=== PATIENT | female | born 1965 | race Hispanic/Latino ===

== ENCOUNTER 2018-12-10 11:06 | Day surgery (SDC) | payer MEDICAID ==
[~2018-12-10] VITALS: Ht 165.1 cm; Wt 65.8 kg
[~2018-12-10 11:06] MED LIST: MONT10TA24 PO; SODIUM CHLORIDE 0.9% 1000ML 1,000 ML IV ONE
[2018-12-10 11:33] VITALS: BP 107/75
[2018-12-10] MEDS ORDERED: FAMO20TA8 PO (11:53)
[2018-12-10] MEDS ORDERED: BISA5TAB12 PO (11:53)
[2018-12-10] MEDS ORDERED: CHOL100046 PO (11:53)
[2018-12-10] MEDS ORDERED: METO10TA3 PO (11:53)
[2018-12-10] MEDS ORDERED: DICY20TA11 PO (11:53)
[2018-12-10] MEDS ORDERED: ONDA4TAB9 PO (11:53)
[2018-12-10] MEDS ORDERED: SUCR1TAB2 PO (11:53)
[2018-12-10] MEDS ORDERED: PROPOFOL 10 MG/ML 20ML VIAL IV ONE (12:25)
[2018-12-10 12:52] VITALS: BP 97/62
[2018-12-10 12:57] VITALS: BP 109/53
[2018-12-10 13:02] VITALS: BP 104/63
[2018-12-10 13:07] VITALS: BP 110/72
[2018-12-10 13:12] VITALS: BP 105/71
== END 2018-12-10 13:22 | disposition home or self-care (01) ==
LOC: ENDO 11:06 → DAH 11:06 → ENDO 13:22
PROVIDERS: ATTEND Internal Medicine
DX: R19.4 Change in bowel habit (principal); K29.50 Unspecified chronic gastritis without bleeding; R10.13 Epigastric pain; R14.0 Abdominal distension (gaseous)
CPT/HCPCS: 43239; 45378; A4606; J2704; J7030

== ENCOUNTER → 2020-07-06 | Outpatient (CLI) | payer MEDICAID ==
[~2020-07-06] MED LIST changes: +ALPR2TAB7 PO; +CYCL10TA7 PO; +FLUO20CA35 PO; -MONT10TA24 PO; -SODIUM CHLORIDE 0.9% 1000ML 1,000 ML IV ONE; +SUCR1TAB2 PO
== END | disposition home or self-care (01) ==
LOC: RAH 09:04
PROVIDERS: ATTEND Family Medicine
DX: K21.9 Gastro-esophageal reflux disease without esophagitis (principal)
CPT/HCPCS: 74240

== ENCOUNTER → 2020-11-16 | Outpatient (CLI) | payer MEDICAID | END | disposition home or self-care (01) | LOC: RAH 09:00 | PROVIDERS: ATTEND Otolaryngology | DX: R49.0 Dysphonia (principal); R13.10 Dysphagia, unspecified | CPT/HCPCS: 74230; 92611 ==

== ENCOUNTER 2021-08-21 12:47 | Emergency (ER) | payer MEDICAID ==
[~2021-08-21] VITALS: Ht 165.1 cm; Wt 61.2 kg
[~2021-08-21 12:47] MED LIST changes: +CYCL-309 PO; -CYCL10TA7 PO; -FLUO20CA35 PO; +FLUO20CA36 PO
[2021-08-21 13:55] LABS: APPEARANCE,URINE Clear (CLEAR); BILIRUBIN,URINE Negative (NEGATIVE); COLOR,URINE Yellow (YELLOW); GLUCOSE, URINE (UA) Negative (NEGATIVE); KETONES,URINE Negative (NEGATIVE); LEUKOCYTE ESTERASE ,URINE Negative (NEGATIVE); NITRATE,URINE Negative (NEGATIVE); OCCULT BLOOD,URINE Negative (NEGATIVE); PROTEIN,URINE Negative (NEGATIVE); UROBILINOGEN,URINE 0.2 mg/dL (0.2-1.0)
[2021-08-21 14:00] LABS: BASOPHILS % (AUTO) 0.4 % (0.0-5.0); LYMPHOCYTES % (AUTO) 38.4 % (21.0-51.0); MEAN CORPUSCULAR HEMOGLOBIN 31.7 pg (27.0-33.0); MEAN CORPUSCULAR HGB CONC 33.2 g/dL (32.0-36.0); MEAN CORPUSCULAR VOLUME 95.7 fL (79-99); MONOCYTES % (AUTO) 13.1 % (3.0-13.0); NEUTROPHILS % (AUTO) 48.1 % (40.0-77.0); PLATELET COUNT (AUTO) 256 K/uL (130-400); RED BLOOD CELL COUNT(AUTO) 3.97 MIL/uL (4.00-5.50); WHITE BLOOD COUNT (AUTO) 2.5 K/uL (4.8-10.8)
[2021-08-21 14:09] LABS: POTASSIUM 4.2 mmol/L (3.5-5.1)
[2021-08-21 14:21] LABS: ALBUMIN 3.9 g/dL (3.5-5.0); BILIRUBIN,TOTAL 0.3 mg/dL (0.2-1.0); CREATININE 0.7 mg/dL (0.5-1.5)
[2021-08-21 14:28] LABS: BAND NEUTROPHILS % (MANUAL) 2 % (0-2); BASOPHILS % (MANUAL) 1 % (0-2); EOSINOPHILS % (MANUAL) 1 % (1-6); LYMPHOCYTES % (MANUAL) 33 % (22-44); MAN.DIFF COMMENT-IMPRESSION MANUAL DIFFERENTIAL; MONOCYTES % (MANUAL) 9 % (2-9); REACTIVE LYMPHOCYTES 2 % (0-0); SEGMENTED NEUTROPHILS % 52 % (40-70)
[2021-08-21] MEDS ORDERED: LACTATED RINGERS 1000ML 1,000 ML IV ONE (15:00)
[2021-08-21] MEDS ORDERED: MORPHINE 2 MG SYG IVP ONE (15:00)
[2021-08-21] MEDS ORDERED: KETOROLAC 60 MG VIAL (30MG/ML) ONE (16:35)
[2021-08-21] MEDS ORDERED: KETOROLAC 60 MG VIAL (30MG/ML) IM ONE (17:00)
[2021-08-21 17:05] VITALS: BP 119/76
[2021-08-21] MEDS ORDERED: DOCU-116 PO (17:37)
[2021-08-21] MEDS ORDERED: POLY17PO4 PO (17:37)
== END 2021-08-21 17:43 | disposition home or self-care (01) ==
LOC: EDH 12:47
DX: K59.00 Constipation, unspecified (principal); M48.54XA Collapsed vertebra, not elsewhere classified, thoracic region, initial encounter for fracture; R19.7 Diarrhea, unspecified; Z20.822 Contact with and (suspected) exposure to COVID-19; Z79.1 Long term (current) use of non-steroidal anti-inflammatories (NSAID); Z79.899 Other long term (current) drug therapy; Z87.891 Personal history of nicotine dependence; Z90.710 Acquired absence of both cervix and uterus
CPT/HCPCS: 36415; 74176; 76856; 80053; 81003; 83690; 85025; 87635; 87804 ×2; 96361; 96372; 96374; 99285; C9803; J1885; J7120

== ENCOUNTER 2021-11-29 18:01 | Emergency (ER) | payer MEDICAID ==
[~2021-11-29] VITALS: Ht 165.1 cm; Wt 61.2 kg
[~2021-11-29 18:01] MED LIST changes: +DOCU-116 PO; +POLY17PO4 PO
[2021-11-29] MEDS ORDERED: ASPIRIN 81MG CHEW TAB PO ONE (18:30)
[2021-11-29] MEDS ORDERED: NITROGLYCERIN 1GM OINT 1 INCH/1GM TD ONE (18:30)
[2021-11-29 18:41] LABS: BASOPHILS % (AUTO) 0.6 % (0.0-5.0); HEMATOCRIT 34.5 % (36-48); LYMPHOCYTES % (AUTO) 45.7 % (21.0-51.0); MEAN CORPUSCULAR HEMOGLOBIN 32.2 pg (27.0-33.0); MEAN CORPUSCULAR HGB CONC 34.5 g/dL (32.0-36.0); MEAN CORPUSCULAR VOLUME 93.2 fL (79-99); MONOCYTES % (AUTO) 12.4 % (3.0-13.0); PLATELET COUNT (AUTO) 200 K/uL (130-400); WHITE BLOOD COUNT (AUTO) 3.2 K/uL (4.8-10.8)
[2021-11-29 18:51] LABS: CREATININE 0.7 mg/dL (0.5-1.5); POTASSIUM 3.7 mmol/L (3.5-5.1)
[2021-11-29 18:56] LABS: ALBUMIN 3.3 g/dL (3.5-5.0); BILIRUBIN,TOTAL 0.1 mg/dL (0.2-1.0); TOTAL PROTEIN, SERUM 6.5 g/dL (6.0-8.3)
[2021-11-29] MEDS ORDERED: LORAZEPAM 1 MG TABLET PO ONE (21:30)
[2021-11-29 22:15] VITALS: BP 103/65
[2021-11-29] MEDS ORDERED: FAMO-136 PO (22:45)
== END 2021-11-29 23:06 | disposition home or self-care (01) ==
LOC: EDH 18:01
DX: F41.9 Anxiety disorder, unspecified (principal); R07.89 Other chest pain; R53.83 Other fatigue; I10 Essential (primary) hypertension; M19.90 Unspecified osteoarthritis, unspecified site; M79.7 Fibromyalgia; Z79.899 Other long term (current) drug therapy; Z87.891 Personal history of nicotine dependence
CPT/HCPCS: 36415; 71045; 80053; 83690; 84484; 85025; 93005

== ENCOUNTER 2022-09-02 20:40 | Emergency (ER) | payer MEDICAID ==
[~2022-09-02] VITALS: Ht 160 cm; Wt 62.6 kg
[~2022-09-02 20:40] MED LIST changes: +FAMO-136 PO
[2022-09-02] MEDS ORDERED: 0.9%NACL 1000ML 1,000 ML IV ONE (21:30)
[2022-09-02] MEDS ORDERED: ONDANSETRON 4MG INJ IVP ONE (21:30)
[2022-09-02 21:44] LABS: BASOPHILS % (AUTO) 0.6 % (0.0-5.0); HEMATOCRIT 36.3 % (36-48); LYMPHOCYTES % (AUTO) 48.8 % (21.0-51.0); MEAN CORPUSCULAR HEMOGLOBIN 31.9 pg (27.0-33.0); MEAN CORPUSCULAR HGB CONC 33.9 g/dL (32.0-36.0); MEAN CORPUSCULAR VOLUME 94.3 fL (79-99); MONOCYTES % (AUTO) 12.5 % (3.0-13.0); NEUTROPHILS % (AUTO) 37.8 % (40.0-77.0); PLATELET COUNT (AUTO) 279 K/uL (130-400); RED BLOOD CELL COUNT(AUTO) 3.85 MIL/uL (4.00-5.50); RED CELL DISTRIBUTION WIDTH 12.2 % (11.0-15.5); WHITE BLOOD COUNT (AUTO) 3.2 K/uL (4.8-10.8)
[2022-09-02 21:53] LABS: APPEARANCE,URINE CLEAR (CLEAR); BILIRUBIN,URINE NEGATIVE (NEGATIVE); COLOR,URINE YELLOW (YELLOW); GLUCOSE, URINE (UA) NEGATIVE (NEGATIVE); KETONES,URINE NEGATIVE (NEGATIVE); LEUKOCYTE ESTERASE ,URINE NEGATIVE Leu/uL (NEGATIVE); NITRATE,URINE NEGATIVE (NEGATIVE); OCCULT BLOOD,URINE NEGATIVE (NEGATIVE); PROTEIN,URINE 20 mg/dL (NEGATIVE)
[2022-09-02 22:00] LABS: AMPHET/METH SCREEN,URINE NEGATIVE (NEGATIVE); BARBITURATE SCREEN, URINE NEGATIVE (NEGATIVE); BENZODIAZEPINES SCREEN,URINE POSITIVE (NEGATIVE); CANNABINOID SCREEN,URINE NEGATIVE (NEGATIVE); COCAINE SCREEN,URINE NEGATIVE (NEGATIVE); OPIATE SCREEN,URINE NEGATIVE (NEGATIVE); PHENCYCLIDINE SCREEN,URINE NEGATIVE (NEGATIVE)
[2022-09-02 22:03] LABS: MUCUS,URINE RARE LPF (None Seen); SQUAMOUS EPITHELIAL CELL,UR RARE /HPF (0-2)
[2022-09-02] MEDS ORDERED: KETOROLAC 15MG/ML VIAL (15MG/ML) ONE (22:06)
[2022-09-02 22:19] LABS: CREATININE 0.8 mg/dL (0.5-1.5); POTASSIUM 3.5 mmol/L (3.5-5.1)
[2022-09-02 22:29] LABS: ALBUMIN 3.5 g/dL (3.5-5.0); TOTAL PROTEIN, SERUM 7.6 g/dL (6.0-8.3)
[2022-09-02] MEDS ORDERED: KETOROLAC 15MG/ML VIAL (15MG/ML) IV ONE (22:30)
[2022-09-03 02:10] VITALS: BP 146/65
== END 2022-09-03 02:13 | disposition home or self-care (01) ==
LOC: EDH 20:40
DX: F41.9 Anxiety disorder, unspecified (principal); B34.9 Viral infection, unspecified; E78.00 Pure hypercholesterolemia, unspecified; M19.90 Unspecified osteoarthritis, unspecified site; Z20.822 Contact with and (suspected) exposure to COVID-19; Z79.899 Other long term (current) drug therapy; Z90.710 Acquired absence of both cervix and uterus; Z98.890 Other specified postprocedural states
CPT/HCPCS: 99285; 96374; 71045; 87635; 96361; 96375; 84484; 80053; 80305; 83690; 85025; 87804 ×2; 36415; 93005; 81001; C9803; J7030; J2405; J1885

== ENCOUNTER 2024-11-27 04:04 | Observation (INO) | payer MEDICAID ==
[~2024-11-27] VITALS: Ht 165.1 cm; Wt 59.0 kg
[~2024-11-27 04:04] MED LIST changes: +CIPR-278 PO; +FLUO-418 PO; -FLUO20CA36 PO; +TAMS-55 PO
--- NOTE | 2024-11-27 04:54 | ERN ---
General Chief Complaint: Flank Pain Stated Complaint: right flank pain Time Seen by MD: 04:18 Source: patient History of Present Illness Initial Comments Patient is a 59-year-old female with a known history of kidney stones and is diagnosed with the current kidney stone. She was seen here recently and also recently by her primary care doctor. She currently is on nitrofurantoin for infection and low-dose hydrocodone/Tylenol for back pain. She was going to see her primary care doctor November 25 (Sunday), but the appointment was canceled and rescheduled for next week. Patient states she tried to stay away and handle the pain on her own but it became too much and she comes to the emergency room tonight. She states alternating fevers and chills. No nausea no vomiting no diarrhea. Allergies: Coded Allergies: No Known Drug Allergies (Verified Allergy, Unknown, 05/04/19) Home Meds Active Scripts Tamsulosin HCl (Flomax) 0.4 Mg Cap.er.24h, 0.4 MG PO DAILY for 10 Days, #10 CAPSULE.DR Prov:ALEIDA MARCELO MD 11/26/24 Ciprofloxacin HCl (Cipro) 500 Mg Tablet, 1 TAB PO BID for 10 Days, #20 TAB 0 Refills Prov:ALEIDA MARCELO MD 11/26/24 Famotidine (Pepcid) 20 Mg Tablet, 20 MG PO BID, #30 TAB 0 Refills Prov:RAFI MONTOYA MD 11/29/21 Docusate Sodium (Colace) 100 Mg Capsule, 100 MG PO BID, #30 CAP Prov:ALOK CROWLEY Jr. [facility] 08/21/21 Polyethylene Glycol 3350 (Miralax) 17 Gm Powd.pack, 17 GM PO DAILY, #21 EA Prov:ALOK CROWLEY Jr. [facility] 08/21/21 Reported Medications Alprazolam (Alprazolam) 2 Mg Tablet, 2 MG PO Q8H 05/05/19 Cyclobenzaprine HCl (Cyclobenzaprine HCl) 10 Mg Tablet, 10 MG PO HS 05/05/19 Fluoxetine HCl (Fluoxetine HCl) 20 Mg Capsule, 20 MG PO DAILY 05/05/19 Sucralfate (Sucralfate) 1 Gm Tablet, 1 GM PO QID, TAB 12/10/18 Past Medical History Past Medical History: Fibromyalgia, GERD, Kidney Stone Medical History Other: HX OF KIDNEY STONES Past Surgical History: Other Surgical History Other: BACK SX Family History Family History: CAD, DM Social History Social History: Negative, Lives alone, Other Female( History) History: Not Applicable Constitutional: (+) chills, (+) diaphoresis, (+) fever, (+) malaise, (+) weakness, (+) other documentation EENTM: (-) eye pain, (-) blurred vision, (-) tearing, (-) double vision, (-) ear pain, (-) ear discharge, (-) nose pain, (-) nose congestion, (-) throat pain, (-) Throat swelling, (-) mouth pain, (-) tooth pain, (-) mouth swelling, (-) other documentation Respiratory: (-) cough, (-) orthopnea, (-) short of breath, (-) stridor, (-) wheezing, (-) other documentation Cardiovascular: (-) chest pain, (-) edema, (-) palpitations, (-) syncope, (-) dyspnea on exertion, (-) other documentation Gastrointestinal/Abdominal: (-) nausea, (-) vomiting, (-) diarrhea, (-) abdominal pain, (-) abdominal distention, (-) constipation, (-) rectal bleeding, (-) dark stool/melena, (-) other documentation Musculoskeletal: (+) Neck pain, (+) back pain, (+) Flank Pain, (+) joint pain, (+) joint swelling, (+) muscle pain, (+) muscle stiffness, (+) gout, (+) other documentation Neuro: (-) altered mental status, (-) headache, (-) syncope, (-) paralysis, (-) numbness, (-) seizure, (-) pre-existing deficit, (-) tremors, (-) weakness, (-) dizziness, (-) slurred speech, (-) vertigo, (-) other documentation Physical Exam General Appearance: (+) moderate distress Orientation: (+) alert Head/Face Trauma: No Eye: bilateral eye normal inspection, bilateral eye PERRL, bilateral eye EOMI Ear, Nose, Throat: (+) hearing grossly normal, (+) normal ENT inspection Neck: (+) normal inspection, (+) supple, (+) no JVD Respiratory: (+) chest non-tender, (+) lungs clear Heart: (+) regular Vascular: (+) no edema, (+) normal peripheral pulse Gastrointestinal: (+) soft, (+) non-tender, (+) bowel sound present Results Laboratory and Microbiology Lab and Micro Result Laboratory Tests Test 11/27/24 05:07 11/27/24 07:35 White Blood Count 3.5 K/uL (4.8-10.8) L Red Blood Count 3.91 MIL/uL (4.00-5.50) L Hemoglobin 12.2 g/dL (12.0-16.0) Hematocrit 37.1 % (36-48) Mean Corpuscular Volume 94.9 fL (79-99) Mean Corpuscular Hemoglobin 31.2 pg (27.0-33.0) Mean Corpuscular Hemoglobin Concent 32.9 g/dL (32.0-36.0) Red Cell Distribution Width 14.4 % (11.0-15.5) Platelet Count 306 K/uL (130-400) Mean Platelet Volume 8.8 fL (7.5-10.5) Immature Granulocyte % (Auto) 0.3 % (0-1) Neutrophils (%) (Auto) 44.5 % (40.0-77.0) Lymphocytes (%) (Auto) 41.7 % (21.0-51.0) Monocytes (%) (Auto) 12.6 % (3.0-13.0) Eosinophils (%) (Auto) 0.0 % (0.0-8.0) Basophils (%) (Auto) 0.9 % (0.0-5.0) Neutrophils # (Auto) 1.6 K/uL (1.8-7.7) L Lymphocytes # (Auto) 1.5 K/uL (1.0-4.8) Monocytes # (Auto) 0.4 K/uL (0.1-1.0) Eosinophils # (Auto) 0.00 K/uL (0.00-0.70) Basophils # (Auto) 0.03 K/uL (0.00-0.20) Absolute Immature Granulocyte (auto 0.01 K/uL (0-1) Nucleated Red Blood Cells 0.0 % (0.0-0.19) Sodium Level 137 mmol/L (136-145) Potassium Level 4.6 mmol/L (3.5-5.1) Chloride Level 99 mmol/L (101-111) L Carbon Dioxide Level 31 mmol/L (21-32) Blood Urea Nitrogen 20 mg/dL (7-18) H Creatinine 0.7 mg/dL (0.5-1.0) Glomerular Filtration Rate Calc 101 mL/min (>90) Random Glucose 92 mg/dL (70-105) Total Calcium 9.5 mg/dL (8.5-10.1) Urine Color LIGHT-YELLOW (YELLOW) Urine Appearance CLEAR (CLEAR) Urine pH 6.0 (5.0-8.0) Urine Specific [place] 1.014 (1.001-1.031) Urine Protein NEGATIVE mg/dL (NEGATIVE) Urine Glucose (UA) NEGATIVE mg/dL (NEGATIVE) Urine Ketones NEGATIVE mg/dL (NEGATIVE) Urine Occult Blood MODERATE (NEGATIVE) H Urine Nitrate NEGATIVE (NEGATIVE) Urine Bilirubin NEGATIVE mg/dL (NEGATIVE) Urine Urobilinogen 0.2 mg/dL (0.2-1.0) Urine Leukocyte Esterase 250 Nicolle/uL (NEGATIVE) H Urine RBC 6-10 /HPF (0-1) H Urine WBC 11-25 /HPF (0-1) H Urine Squamous Epithelial Cells RARE /HPF (0-2) Urine Bacteria None /HPF (None Seen) Labs Reviewed?: Yes EKG/XRAY/US/CT/MRI CT Scan Comment [address] [address] IMAGING REPORT Signed PATIENT: NIKKY MENDOZA MR#: [id number] : 1965 SEX: F AGE: 59 LOCATION: ED ORDER 4 STATUS: REG REPORT#: [id number] SERVICE 3 REASON: FLANK PAIN ORDERING PHYSICIAN: SONIA AMAYA MD PROCEDURE: ABD PEL WO - CT ABDOMEN/PELVIS W/O CONTRAST CT ABDOMEN/PELVIS W/O CONTRAST HISTORY: Flank pain COMPARISON: 11/26/2024 TECHNIQUE: Multiple sequential axial images of the abdomen and pelvis were obtained from the dome of the diaphragm through symphysis pubis. Patient was not given contrast through intravenous route. Oral contrast was not given. FINDINGS: No pleural effusion is seen bilaterally. There is no evidence of parenchymal disease or pulmonary nodule of the visualized lower lungs. Degenerative changes of the thoracolumbar spine are present. The heart is not enlarged. Liver measures 16 cm. The liver, spleen, adrenal glands and pancreas are unremarkable. There is no evidence of hydronephrosis bilaterally. Tiny 2 mm right renal pelvic stones are seen. There is mild diverticulosis. Fecal material is seen in the colon. There are normal size retroperitoneal and mesenteric lymph nodes. No ascites is seen. Atherosclerotic changes are present. Pelvic sidewalls are symmetric bilaterally. Bladder is well distended without wall thickening. IMPRESSION: 1. Moderate fecal material is seen in the colon. There is diverticulosis. Tiny 2 mm right renal pelvic stones without hydronephrosis. CT was performed with one or more following dose reduction techniques: automated exposure control, adjustment of the mA and kv according to patient's size, or use of a iterative reconstruction technique. DICTATED BY: FRANCISCA MAYERS MD DATE: 11/27/24842 ELECTRONICALLY SIGNED BY: FRANCISCA MAYERS MD DATE: 11/27/24854 MDM 59-year-old female in unremitting renal colic associated with fevers and chills. I will do a quick CBC UA chemistry panel to be sure she does not have infection. I also gave the patient some Toradol for her renal colic. It did not help. So I gave her 2 mg of Dilaudid IV x1. Her pain is controlled with the Dilaudid but now her blood pressure is a little low I will give her some fluids. We may have to admit the patient is simply for pain control. MDM: Differential diagnosis: Cholelithiasis, pain management, constipation Rationale: Tests considered and ordered secondary to shared decision making include: labs, ECG and radiology Previous outside records reviewed: Old ER visits. Risk of complication and/or morbidity or mortality of patient management: None Medications-Per medication reconciliation Need for hospitalization: Patient does meet criteria for hospitalization. Need for emergency major/minor surgery: No There are no social concerns with this patient. Prescription drug management Prescriptions will include symptomatic care Patient's prior external medical records from other ER visits were reviewed by me as indicated. Prior testing and results from previous visits were reviewed. Prior tests were taken into account with medical decision making and resource utilization, independent historian/historians were used to obtain complete medical history. I independently interpreted the test that were performed, results were reviewed by me and considered findings on radiology if ordered. Medical management and examination interpretation discussions were had by me with other qualified healthcare professionals as indicated for the patient's care. Patient is a 59-year-old female coming in to be evaluated for abdominal pain. Patient was recently diagnosed with a kidney stone. She states that the pain is intolerable in his here for evaluation. CT disclose a 2 mm kidney stone still present also constipation. Due to the intense pain present patient will be admitted under the care of [facility] for ongoing management. Patient also presented with a urinary tract infection. ED Course Orders Procedure Category Date Status Time Urinalysis Profile LAB 11/27/24 Complete 04:54 Cbc With Differential LAB 11/27/24 Complete 04:54 Basic Metabolic Panel LAB 11/27/24 Complete 04:54 Tamsulosin Hcl PHA 11/27/24 Complete (Flomax) 05:00 Ketorolac PHA 11/27/24 Complete Tromethamine 30mg/Ml 05:00 Hydromorphone 2mg PHA 11/27/24 Complete Vial (Dilaudid 2mg Inj 06:00 Lactated Ringers PHA 11/27/24 Complete 1000ml (Lactated 07:30 Ct Abdomen/Pelvis W/O CT 11/27/24 Resulted Contrast 07:24 Magnesium Citrate PHA 11/27/24 Complete (Magnesium Citrate) 09:00 Lactulose 20 Gm/30 Ml PHA 11/27/24 Complete Udcup (Constulose 09:00 Ceftriaxone 1g Vial PHA 11/27/24 Complete (Rocephine 1g Inj) 09:30 Current Medications Medications (Trade) Dose Ordered Sig/Kishore Route PRN Reason Start Time Stop Time Status Last Admin Dose Admin Ceftriaxone Sodium (ROCEphine 1G INJ) 1 gm ONCE ONCE IVPB 11/27/24 09:30 11/27/24 09:31 DC 11/27/24 09:06 Hydromorphone HCl (DiLAUDid 2MG INJ) 2 mg ONCE ONCE IVP 11/27/24 06:00 11/27/24 06:01 DC 11/27/24 06:02 Ketorolac Tromethamine (toRADol) 30 mg ONCE ONCE IVP 11/27/24 05:00 11/27/24 05:02 DC 11/27/24 05:11 Lactated Ringer's (Lactated Ringers 1000ml) 1,000 ml BOLUS ONCE IV 11/27/24 07:30 11/27/24 07:31 DC 11/27/24 07:33 Lactulose (Constulose 20gm/ 30ml Udcup) 20 gm ONCE ONCE PO 11/27/24 09:00 11/27/24 09:01 DC 11/27/24 09:04 Magnesium Citrate (Magnesium Citrate) 296 ml ONCE ONCE PO 11/27/24 09:00 11/27/24 09:01 DC 11/27/24 09:04 Tamsulosin HCl (FloMAX) 0.4 mg ONCE ONCE PO 11/27/24 05:00 11/27/24 05:02 DC 11/27/24 05:11 Vital Signs Date Time Temp Pulse Resp B/P (MAP) Pulse Ox O2 Delivery O2 Flow Rate FiO2 11/27/24 06:33 72 18 115/69 98 Room Air* 0 21 11/27/24 04:14 98.4 78 18 128/70 98 Room Air* 0 21 11/27/24 04:14 98.4 71 18 128/70 99 Room Air DX & DISP Disposition: Inpatient Decision to Admit Time: 09:38 Departure Impression: Primary Impression: UTI (urinary tract infection) Additional Impressions: Ureteral stone, Constipation Condition: Stable Referrals: ANDRES MENDEZ MD (PCP) LEANDER LEW MD Nov 27, 2024 04:54 SONIA AMAYA MD Nov 27, 2024 09:39
[2024-11-27] MEDS: ketOROlac 30MG VIAL (30MG/ML) IVP ONE (05:11)
[2024-11-27] MEDS: tamSULOsin HCL 0.4 MG CAP.ER.24H PO ONE (05:11)
[2024-11-27 05:13] LABS: BASOPHILS # (AUTO) 0.03 K/uL (0.00-0.20); BASOPHILS % (AUTO) 0.9 % (0.0-5.0); HEMATOCRIT 37.1 % (36-48); IMMATURE GRANULOCYTE ABSOLUTE 0.01 K/uL (0-1); LYMPHOCYTES # (AUTO) 1.5 K/uL (1.0-4.8); LYMPHOCYTES % (AUTO) 41.7 % (21.0-51.0); MEAN CORPUSCULAR HEMOGLOBIN 31.2 pg (27.0-33.0); MEAN CORPUSCULAR HGB CONC 32.9 g/dL (32.0-36.0); MEAN CORPUSCULAR VOLUME 94.9 fL (79-99); MONOCYTES # (AUTO) 0.4 K/uL (0.1-1.0); MONOCYTES % (AUTO) 12.6 % (3.0-13.0); NEUTROPHILS # (AUTO) 1.6 K/uL (1.8-7.7); NEUTROPHILS % (AUTO) 44.5 % (40.0-77.0); PLATELET COUNT (AUTO) 306 K/uL (130-400); RED BLOOD CELL COUNT(AUTO) 3.91 MIL/uL (4.00-5.50); RED CELL DISTRIBUTION WIDTH 14.4 % (11.0-15.5); WHITE BLOOD COUNT (AUTO) 3.5 K/uL (4.8-10.8)
[2024-11-27 05:34] LABS: CREATININE 0.7 mg/dL (0.5-1.0); POTASSIUM 4.6 mmol/L (3.5-5.1)
[2024-11-27] MEDS: hydroMORPHone 2 MG VIAL (2MG/ML) IVP ONE (06:02)
--- NOTE | 2024-11-27 06:55 | NUR ---
REPORT RECEIVED FROM PAL GIMENEZ
[2024-11-27] MEDS: LACTATED RINGERS 1000ML IV ONE (07:33)
[2024-11-27 07:49] LABS: APPEARANCE,URINE CLEAR (CLEAR); BILIRUBIN,URINE NEGATIVE (NEGATIVE); COLOR,URINE LIGHT-YELLOW (YELLOW); GLUCOSE, URINE (UA) NEGATIVE (NEGATIVE); KETONES,URINE NEGATIVE (NEGATIVE); LEUKOCYTE ESTERASE ,URINE 250 Leu/uL (NEGATIVE); NITRATE,URINE NEGATIVE (NEGATIVE); OCCULT BLOOD,URINE MODERATE (NEGATIVE); PROTEIN,URINE NEGATIVE (NEGATIVE); UROBILINOGEN,URINE 0.2 mg/dL (0.2-1.0)
[2024-11-27 07:53] LABS: ADD UA MICROSCOPIC YES
[2024-11-27 08:02] LABS: MUCUS,URINE RARE LPF (None Seen); SQUAMOUS EPITHELIAL CELL,UR RARE /HPF (0-2)
--- NOTE | 2024-11-27 08:23 | NUR ---
PT CURRENTLY EN-ROUTE TO CT SCAN W/TECH
--- NOTE | 2024-11-27 08:55 | HMCIMG ---
CT ABDOMEN/PELVIS W/O CONTRAST HISTORY: Flank pain COMPARISON: 11/26/2024 TECHNIQUE: Multiple sequential axial images of the abdomen and pelvis were obtained from the dome of the diaphragm through symphysis pubis. Patient was not given contrast through intravenous route. Oral contrast was not given. FINDINGS: No pleural effusion is seen bilaterally. There is no evidence of parenchymal disease or pulmonary nodule of the visualized lower lungs. Degenerative changes of the thoracolumbar spine are present. The heart is not enlarged. Liver measures 16 cm. The liver, spleen, adrenal glands and pancreas are unremarkable. There is no evidence of hydronephrosis bilaterally. Tiny 2 mm right renal pelvic stones are seen. There is mild diverticulosis. Fecal material is seen in the colon. There are normal size retroperitoneal and mesenteric lymph nodes. No ascites is seen. Atherosclerotic changes are present. Pelvic sidewalls are symmetric bilaterally. Bladder is well distended without wall thickening. IMPRESSION: 1. Moderate fecal material is seen in the colon. There is diverticulosis. Tiny 2 mm right renal pelvic stones without hydronephrosis. CT was performed with one or more following dose reduction techniques: automated exposure control, adjustment of the mA and kv according to patient's size, or use of a iterative reconstruction technique.
[2024-11-27] MEDS: MAGNESIUM CITRATE 296 ML SOLUTION PO ONE ×2 (09:04→10:33)
[2024-11-27] MEDS: LACTULOSE 20 GM/30 ML UDCUP PO ONE (09:04)
[2024-11-27] MEDS: cefTRIAXone 1G VIAL IVPB ONE (09:06)
[2024-11-27] MEDS ORDERED: DiphenhydrAMINE HCL 25 MG CAPSULE PO PRN (10:00)
[2024-11-27] MEDS ORDERED: MAG/ALUM/SIMETH 30 ML UDCUP PO PRN (10:00)
[2024-11-27] MEDS ORDERED: doCUSate SODIUM 100 MG CAP PO PRN (10:00)
[2024-11-27] MEDS ORDERED: BENZOCAINE/MENTH/CETYLPYRD CL 1 EACH LOZENGE MM PRN (10:00)
[2024-11-27] MEDS ORDERED: polyETHYLene GLYCol 3350 17 GM POWD.PACK PO PRN (10:00)
[2024-11-27] MEDS ORDERED: ZOLPidem TARTrate 5 MG TAB PO PRN (10:00)
[2024-11-27] MEDS ORDERED: LOPERAMIDE HCL 2 MG CAP PO PRN (10:00)
[2024-11-27] MEDS ORDERED: LACTULOSE 20 GM/30 ML UDCUP PO PRN (10:00)
[2024-11-27] MEDS ORDERED: LIDOCAINE HCL 2% VISCOUS 30 ML, MAG/ALUM/SIMETH 30ML 30 ML, DICYCLOMINE HCL 20 MG PO PRN (10:00)
[2024-11-27] MEDS ORDERED: guaiFENesin-DM 200/20MG 10ML PO PRN (10:00)
[2024-11-27] MEDS ORDERED: hydrALAZine 25MG TABLET PO PRN (10:00)
[2024-11-27] MEDS ORDERED: acetaMINOPHEN 325 MG TAB PO PRN ×2 (10:00)
[2024-11-27] MEDS ORDERED: ARTIFICAL TEARS SOL 15 ML OP PRN (10:00)
[2024-11-27] MEDS ORDERED: guaiFENesin SUGAR-FREE 100 MG/5 ML UDCUP PO PRN (10:00)
[2024-11-27] MEDS ORDERED: NITROGLYCERIN 0.4 MG SL TAB SL PRN (10:00)
[2024-11-27] MEDS: ketOROlac 15MG/ML VIAL (15MG/ML) IV PRN (10:26)
[2024-11-27] MEDS: polyETHYLene GLYCol 3350 17 GM POWD.PACK PO SCH (10:51)
[2024-11-27] MEDS: BisaCODYL 5 MG TABLET.DR PO SCH (10:51)
[2024-11-27] MEDS: 0.9%NACL 1000ML 1,000 ML IV SCH (10:52)
--- NOTE | 2024-11-27 11:09 | NUR ---
DIEUDONNE GUTIERREZ JUST ARRIVED AND IS CURRENTLY SPEAKING/ASSESSING THE PT.
[2024-11-27] MEDS: ondanSETRON 4MG INJ IV PRN (11:38)
[2024-11-27] MEDS: morPHINE 2 MG SYG IVP PRN (11:39)
[2024-11-27 11:52] LABS: AMPHET/METH SCREEN,URINE NEGATIVE (NEGATIVE); BARBITURATE SCREEN, URINE NEGATIVE (NEGATIVE); BENZODIAZEPINES SCREEN,URINE POSITIVE (NEGATIVE); CANNABINOID SCREEN,URINE NEGATIVE (NEGATIVE); COCAINE SCREEN,URINE NEGATIVE (NEGATIVE); OPIATE SCREEN,URINE POSITIVE (NEGATIVE); PHENCYCLIDINE SCREEN,URINE NEGATIVE (NEGATIVE)
--- NOTE | 2024-11-27 12:02 | HP ---
[facility] HISTORY & PHYSICAL Date Patient Seen: Nov 27, 2024 Time of Visit: 11:46 Supervising Physician: Dr Peoples Primary Care Physician: Dr Kong Outpatient Specialists: [ ] Inpatient Consults: [ ] PROBLEM LIST: Non obstructive Right Nephrolithiasis Acute cystitis Constipation GERD Fibromyalgia Drug-seeking behavior Anemia Ejection fraction 60-65% per echocardiogram 02/18/2024 Hypoglycemia, POA (blood glucose 68 on arrival) History of severe anxiety and depression on multiple psych medications. Chronic problem list: Hypertension, history of polysubstance abuse, and alcohol abuse, anxiety, arthritis, hypercholesteremia, CT Plan Summary: Supplemental oxygen as needed NS at 125 mL an hour Rocephin2 g IV daily Follow urine cultures and modify antibiotics accordingly Urine drug screen Flomax 0.4 mg daily [id number] g daily Bisacodyl 10 mg daily Morphine p.r.n. for severe pain HPI: Mrs. Jackeline Farr is a 59 year old with a past medical history of kidney stones, stable angina, with the EF of 60-65%, good, fibromyalgia, drug-seeking behavior, anxiety, depression, hypertension, hyper lipidemia, CT presents to emergency room with a chief complaint of right back pain which radiates to right flank area and lower abdomen. Patient was previously evaluated at this facility for similar symptoms. Patient was also recently evaluated by her primary care doctor and was started on Macrobid for acute cystitis. Patient admits she takes hydrocodone for chronic back pain. Patient reports she has been dealing with this pain for about a week since last Sunday however has progressively worsened therefore she came in for further evaluation. Patient reports alternating fevers and chills. Patient denies chest discomfort, chest pain, shortness for breath, nausea, vomiting, diarrhea or constipation. Admission vital signs are temperature 98.4 C, heart rate 78 beats per minute, respiratory rate 18 breaths per minute, blood pressure 128/70, O2 sat 98% on room air. Admission labs are unremarkable. Urine is positive for leukocyte esterase and moderate amounts of blood. Patient had a CT of the abdomen and pelvis completed which shows moderate fecal material in the colon, diverticulosis without acute diverticulitis, and a tiny2 mm right renal pelvic stone without hydronephrosis. As per ED MD, patient was to be discharged however she refused to leave and was adamant requesting to be admitted. Patient will be admitted under observation for acute cystitis, constipation. PAST MEDICAL HX: see above PAST SURGICAL HX: noncontributory SOCIAL HISTORY: No tobacco, ETOH, or illicit drug use Coded Allergies: No Known Drug Allergies (Verified Allergy, Unknown, 05/04/19) REVIEW OF SYSTEMS: 12 point ROS reviewed with patient. Pertinent positives mentioned above. Otherwise negative. PHYSICAL EXAM: GENERAL: alert, weak, awake oriented x 3 HEENT: EOMI, Sclera non icteric, moist mucosa NECK: Supple, no JVD, trachea midline LUNGS: Clear breath sounds bilaterally. No wheezes HEART: Regular rate and rhythm. Normal S1 and S2, without murmurs ABD: Abdomen soft, nontender. Bowel sounds present EXT: No clubbing cyanosis or edema NEURO: Alert and oriented to person, follows commands Vital Signs (last 8hr) Date Time Temp Pulse Resp B/P (MAP) Pulse Ox O2 Delivery O2 Flow Rate FiO2 11/27/24 06:33 72 18 115/69 98 Room Air* 0 21 11/27/24 04:14 98.4 78 18 128/70 98 Room Air* 0 21 11/27/24 04:14 98.4 71 18 128/70 99 Room Air LABS: Hematology Labs: Test 11/27/24 05:07 Range/Units White Blood Count 3.5 L 4.8-10.8 K/uL Red Blood Count 3.91 L 4.00-5.50 MIL/uL Hemoglobin 12.2 12.0-16.0 g/dL Hematocrit 37.1 36-48 % Mean Corpuscular Volume 94.9 79-99 fL Mean Corpuscular Hemoglobin 31.2 27.0-33.0 pg Mean Corpuscular Hemoglobin Concent 32.9 32.0-36.0 g/dL Red Cell Distribution Width 14.4 11.0-15.5 % Platelet Count 306 130-400 K/uL Mean Platelet Volume 8.8 7.5-10.5 fL Immature Granulocyte % (Auto) 0.3 0-1 % Neutrophils (%) (Auto) 44.5 40.0-77.0 % Lymphocytes (%) (Auto) 41.7 21.0-51.0 % Monocytes (%) (Auto) 12.6 3.0-13.0 % Eosinophils (%) (Auto) 0.0 0.0-8.0 % Basophils (%) (Auto) 0.9 0.0-5.0 % Neutrophils # (Auto) 1.6 L 1.8-7.7 K/uL Lymphocytes # (Auto) 1.5 1.0-4.8 K/uL Monocytes # (Auto) 0.4 0.1-1.0 K/uL Eosinophils # (Auto) 0.00 0.00-0.70 K/uL Basophils # (Auto) 0.03 0.00-0.20 K/uL Absolute Immature Granulocyte (auto 0.01 0-1 K/uL Nucleated Red Blood Cells 0.0 0.0-0.19 % Chemistry Labs: Test 11/27/24 05:07 Range/Units Sodium Level 137 136-145 mmol/L Potassium Level 4.6 3.5-5.1 mmol/L Chloride Level 99 L 101-111 mmol/L Carbon Dioxide Level 31 21-32 mmol/L Blood Urea Nitrogen 20 H 7-18 mg/dL Creatinine 0.7 0.5-1.0 mg/dL Glomerular Filtration Rate Calc 101 >90 mL/min Random Glucose 92 70-105 mg/dL Total Calcium 9.5 8.5-10.1 mg/dL DIAGNOSTICS / RADIOLOGY RESULTS: PATIENT: JACKELINE FARR MR#: [id number] : 1965 SEX: F AGE: 59 LOCATION: [facility] ORDER 4 STATUS: [facility] REPORT#: [id number] SERVICE 3 REASON: FLANK PAIN ORDERING PHYSICIAN: SONIA AMAYA MD PROCEDURE: ABD PEL WO - CT ABDOMEN/PELVIS W/O CONTRAST CT ABDOMEN/PELVIS W/O CONTRAST HISTORY: Flank pain COMPARISON: 11/26/2024 TECHNIQUE: Multiple sequential axial images of the abdomen and pelvis were obtained from the dome of the diaphragm through symphysis pubis. Patient was not given contrast through intravenous route. Oral contrast was not given. FINDINGS: No pleural effusion is seen bilaterally. There is no evidence of parenchymal disease or pulmonary nodule of the visualized lower lungs. Degenerative changes of the thoracolumbar spine are present. The heart is not enlarged. Liver measures 16 cm. The liver, spleen, adrenal glands and pancreas are unremarkable. There is no evidence of hydronephrosis bilaterally. Tiny 2 mm right renal pelvic stones are seen. There is mild diverticulosis. Fecal material is seen in the colon. There are normal size retroperitoneal and mesenteric lymph nodes. No ascites is seen. Atherosclerotic changes are present. Pelvic sidewalls are symmetric bilaterally. Bladder is well distended without wall thickening. IMPRESSION: 1. Moderate fecal material is seen in the colon. There is diverticulosis. Tiny 2 mm right renal pelvic stones without hydronephrosis. CT was performed with one or more following dose reduction techniques: automated exposure control, adjustment of the mA and kv according to patient's size, or use of a iterative reconstruction technique. DICTATED BY: FRANCISCA MAYERS MD DATE: 11/27/24842 ELECTRONICALLY SIGNED BY: FRANCISCA MAYERS MD DATE: 11/27/24854 PLAN NEURO: Minimize central acting medications as possible. Maintain fall precautions, adequate lighting during the day PULMONARY: Supplemental 02 as needed. Maintain aspiration precautions at all times CARDIOVASCULAR: Follow hemodynamics. Vital signs per facility protocol GI & NUTRITION: Continue with nutritional support. Continue stool softeners and laxatives as needed. KIDNEYS & ELECTROLYTES: Strict monitoring of intake, output and overall fluid balance. Avoid nephrotoxic medications to the extent possible. Medications to be dosed according to renal function. Monitor electrolytes and replace as needed ENDOCRINE: Maintain blood glucose between 100-180 at all times. Hypoglycemia protocol in place INFECTIOUS DISEASE: Trend temperature, WBC and procalcitonin level Follow cultures, deescalate antibiotics as soon as possible. Panculture if new onset fever ONCOLOGY/HEMATOLOGY/COAGULATION: Monitor for s/s of bleeding Monitor hemoglobin, coagulation studies as needed SKIN: Pressure ulcer prevention per facility protocol Specialty mattress ORTHO/REHAB: Continue PT/OT Prophylaxis: Continue GI and DVT prophylaxis Code Status: Full Resuscitation Disposition: Home Other: Total patient care time exceeds 35 minutes excluding all procedures. ATTESTATION BY PHYSICIAN I have seen and examined the patient. I reviewed the documentation, medical decision making, and treatment plan as noted by the mid-level provider above. I agree with the findings and plan of care. Estephanie Peoples MD, ECTOR N NP Nov 27, 2024 12:02
[2024-11-27] MEDS: tamSULOsin HCL 0.4 MG CAP.ER.24H PO SCH (12:30)
--- NOTE | 2024-11-27 12:40 | NUR ---
BED ASSIGNMENT: BED [id number] JUST ASSIGNED TO ME
--- NOTE | 2024-11-27 12:41 | NUR ---
PT OOB TO BR TO ATTEMPT TO HAVE A STOOL
--- NOTE | 2024-11-27 12:49 | NUR ---
FAILED ATTEMPT TO CALL REPORT. NO ANSWER AT [id number]
--- NOTE | 2024-11-27 12:55 | NUR ---
NO HOME MEDS-ONLY TEMPORARY ANTIBIOITIC AND ANTIEMETIC SCRIPTED A WEEK AGO.
[2024-11-27 13:15] VITALS: BP 98/53; PULSE 75; RESP 16; TEMP 97.4; O2SAT 98
[2024-11-27 16:00] VITALS: BP 106/66; PULSE 63; RESP 19; TEMP 97.4
[2024-11-27] MEDS: INSULIN humuLIN R 100 UNIT/ML 3ML SQ SCH (16:03)
[2024-11-27 19:00] VITALS: BP 102/68; PULSE 63; RESP 20; TEMP 97.7
[2024-11-27] MEDS: FAMOTIDINE 20MG TAB PO SCH (19:40)
[2024-11-27 20:00] VITALS: O2SAT 97
[2024-11-27] MEDS: ALPRAZolam 0.5 MG TABLET PO PRN (23:13)
[2024-11-28] VITALS (7 sets, daily range): BP systolic 97–140; BP diastolic 38–94; PULSE 52–86; RESP 19–20; TEMP 97.4–98.4; O2SAT 97
--- NOTE | 2024-11-28 03:40 | CONS ---
REQUESTING PHYSICIAN: Estephanie Peoples MD REASON FOR CONSULTATION: Kidney stones. HISTORY OF PRESENT ILLNESS: Dear Dr. Peoples, I had the pleasure of seeing your patient, did a gynecology evaluation of right sided kidney stone. This is a 59-year-old female who reports right flank pain. Apparently of a day or 2 days' duration, presented to Emergency Room, was admitted for evaluation and treatment of constipation and acute cystitis and right kidney stone. A consultation Urology requested. The patient's CT scan documented the presence of a tiny 2-mm renal pelvis stone as the only finding with a mild fullness of collecting on the patient's left hand side than that, there were no other findings on the CT scan and a consultation Urology requested because of right flank pain and possible right ureteric kidney stone. The patient reports having had multiple stones in the past, which she passed on her own. She states she has had no surgical intervention for this. ALLERGIES: None. CURRENT MEDICATIONS: Include morphine, acetaminophen, famotidine, Zofran, Maalox, lactulose, Nitrostat, Robitussin, loperamide, ____ and Flomax 0.4 mg once a day. PAST MEDICAL HISTORY: Significant for angina, ejection fraction of 60, drug seeking behavior, anxiety, depression, hypertension, hyperlipidemia. PAST SURGICAL HISTORY: Apparently negative. REVIEW OF SYSTEMS: Essentially, no chest pain. Her appetite is poor. She has some nausea, no vomiting, no constipation or diarrhea. No headaches, dizziness, or nosebleeds. No joint pain, joint swelling, limitation of movement, night sweats, fever, chills, or skin rash. Additional past medical history includes fibromyalgia and rheumatoid arthritis. FAMILY HISTORY: Kidney stones. SOCIAL HISTORY: The patient is a disabled, has 5 children. Does not smoke or drink. PHYSICAL EXAMINATION: GENERAL: Well-developed female, in distress, she states. VITAL SIGNS: Her temperature is 98, pulse is 72, blood pressure is 120/70. NECK: Has no adenopathy or supraclavicular masses palpable. LUNGS: Simms are clear to auscultation. HEART: Sounds are best heard in the fifth intercostal space. ABDOMEN: Full, soft, nontender. BACK: Has bilateral CVA tenderness. GENITALIA AND RECTUM: Deferred. LABORATORY DATA: Shows a white count 3.5, hematocrit is 37, platelet count is 306, the patient's electrolytes and chemistry panel pending as is her urinalysis. Her chemistries show sodium is 137, potassium 4.6, BUN and creatinine are 20/0.7. Urinalysis is pending. IMAGING STUDIES: Reviewed today include a CT scan of abdomen and pelvis that show a tiny 2-mm right renal pelvis stone with no hydronephrosis on the right hand side, mild fullness on the left. ASSESSMENT: * Bilateral back pain with incidental finding of a tiny 2-mm right renal pelvis stone. * Back pain. * History of kidney stones in the past. RECOMMENDATIONS: * The patient to have a functional study with an IVP with tomograms. * If the patient documents or demonstrates obstruction on functional study, consideration for nephrostomy tube placement or double-J stent will be advised. * If there is no obstruction on IVP and the patient's pain, unlikely to be arising from any obstructive uropathy from kidney stones and remainder of her management will be as per her treating hospitalist physicians. Concerns were answered. Thank you for the opportunity for providing consultation on your patient. TID: [id number] RECEIPT: [id number]
[2024-11-28 05:26] LABS: HEMATOCRIT 32.9 % (36-48); MEAN CORPUSCULAR HEMOGLOBIN 30.8 pg (27.0-33.0); MEAN CORPUSCULAR HGB CONC 31.9 g/dL (32.0-36.0); MEAN CORPUSCULAR VOLUME 96.5 fL (79-99); PLATELET COUNT (AUTO) 244 K/uL (130-400); RED BLOOD CELL COUNT(AUTO) 3.41 MIL/uL (4.00-5.50); RED CELL DISTRIBUTION WIDTH 14.5 % (11.0-15.5); WHITE BLOOD COUNT (AUTO) 2.8 K/uL (4.8-10.8)
[2024-11-28 05:53] LABS: CREATININE 0.6 mg/dL (0.5-1.0); MAGNESIUM 2.1 mg/dL (1.80-2.40)
[2024-11-28 06:13] LABS: BAND NEUTROPHILS % (MANUAL) 1 % (0-2); BASOPHILS % (MANUAL) 4 % (0-2); EOSINOPHILS % (MANUAL) 2 % (1-6); LYMPHOCYTES % (MANUAL) 48 % (22-44); MAN.DIFF COMMENT-IMPRESSION MANUAL DIFFERENTIAL; MONOCYTES % (MANUAL) 6 % (2-9); SEGMENTED NEUTROPHILS % 39 % (40-70); TOTAL CELLS COUNTED 100
[2024-11-28 06:14] LABS: PLATELET MORPHOLOGY COMMENT ADEQUATE
[2024-11-28] MEDS: CEFTRIAXONE 2GM VIAL IVPB SCH (08:02)
[2024-11-28] MEDS ORDERED: IOHEXOL-350 50ML VIAL IV ONE (09:00)
--- NOTE | 2024-11-28 10:56 | PN ---
[facility] PROGRESS NOTE Date Patient Seen: Nov 28, 2024 Time of Visit: 10:52 Supervising Physician: [Dr Sergio Anna Primary Care Physician: Dr Kong Outpatient Specialists: [ ] Inpatient Consults: [[facility] PROBLEM LIST: Non obstructive Right Nephrolithiasis Acute cystitis Constipation GERD Fibromyalgia Drug-seeking behavior Anemia Ejection fraction 60-65% per echocardiogram 02/18/2024 Hypoglycemia, POA (blood glucose 68 on arrival) History of severe anxiety and depression on multiple psych medications. Chronic problem list: Hypertension, history of polysubstance abuse, and alcohol abuse, anxiety, arthritis, hypercholesteremia, [place] Plan Summary: Supplemental oxygen as needed NS at 125 mL an hour Rocephin2 g IV daily Follow urine cultures and modify antibiotics accordingly Flomax 0.4 mg daily [id number] g daily Bisacodyl 10 mg daily Morphine p.r.n. for severe pain IVP as per Urology recs today Follow further recs Dispo: Home once cleared by urology INTERVAL HISTORY: Mrs. Jackeline Farr is a 59 year old with a past medical history of kidney stones, stable angina, with the EF of 60-65%, good, fibromyalgia, drug-seeking behavior, anxiety, depression, hypertension, hyper lipidemia, [place] presents to emergency room with a chief complaint of right back pain which radiates to right flank area and lower abdomen. Patient was previously evaluated at this facility for similar symptoms. Patient was also recently evaluated by her primary care doctor and was started on Macrobid for acute cystitis. Patient admits she takes hydrocodone for chronic back pain. Patient reports she has been dealing with this pain for about a week since last Sunday however has progressively worsened therefore she came in for further evaluation. Patient reports alternating fevers and chills. Patient denies chest discomfort, chest pain, shortness for breath, nausea, vomiting, diarrhea or constipation. Admission vital signs are temperature 98.4 C, heart rate 78 beats per minute, respiratory rate 18 breaths per minute, blood pressure 128/70, O2 sat 98% on room air. Admission labs are unremarkable. Urine is positive for leukocyte esterase and moderate amounts of blood. Patient had a CT of the abdomen and pelvis completed which shows moderate fecal material in the colon, diverticulo sis without acute diverticulitis, and a tiny2 mm right renal pelvic stone without hydronephrosis. As per ED MD, patient was to be discharged however she refused to leave and was adamant requesting to be admitted. Patient will be admitted under observation for acute cystitis, constipation. 11/28 - seen and evaluated at the bedside. Patient is sitting up in bed continues to complain of right flank pain however does admit it is being well managed by nursing staff. No acute changes reported overnight. Patient was evaluated by Dr. Bray and recommends functional study with an IVP with tomograms. He was results demonstrate obstruction we will consider nephrostomy tube placement or double-J stent. We will follow results. Vital signs are stable. Labs are within normal limits. We will continue current treatment plan for now. We will await further recommendations by Urology. REVIEW OF SYSTEMS: 12 point ROS reviewed with patient. Pertinent positives mentioned above. Otherwise negative. PHYSICAL EXAM: GENERAL: alert, weak, awake oriented x 3 HEENT: EOMI, Sclera non icteric, moist mucosa NECK: Supple, no JVD, trachea midline LUNGS: Clear breath sounds bilaterally. No wheezes HEART: Regular rate and rhythm. Normal S1 and S2, without murmurs ABD: Abdomen soft, nontender. Bowel sounds present EXT: No clubbing cyanosis or edema NEURO: Alert and oriented to person, follows commands Vital Signs (last 8hr) Date Time Temp Pulse Resp B/P (MAP) Pulse Ox O2 Delivery O2 Flow Rate FiO2 11/28/24 08:00 98.1 58 20 140/56 100 Room Air 21 11/28/24 04:46 97.5 69 20 129/94 98 Room Air LABS: Hematology Labs: Test 11/28/24 04:58 11/27/24 05:07 Range/Units White Blood Count 2.8 L 4.8-10.8 K/uL Red Blood Count 3.41 L 4.00-5.50 MIL/uL Hemoglobin 10.5 L 12.0-16.0 g/dL Hematocrit 32.9 L 36-48 % Mean Corpuscular Volume 96.5 79-99 fL Mean Corpuscular Hemoglobin 30.8 27.0-33.0 pg Mean Corpuscular Hemoglobin Concent 31.9 L 32.0-36.0 g/dL Red Cell Distribution Width 14.5 11.0-15.5 % Platelet Count 244 130-400 K/uL Mean Platelet Volume 8.7 7.5-10.5 fL Segmented Neutrophils % 39 L 40-70 % Band Neutrophils % 1 0-2 % Lymphocytes % (Manual) 48 H 22-44 % Monocytes % (Manual) 6 2-9 % Eosinophils % (Manual) 2 1-6 % Basophils % (Manual) 4 H 0-2 % Nucleated Red Blood Cells 0.0 0.0-0.19 % Differential Comment MANUAL DIFFERENTIAL White Cell Morphology Comment Platelet Morphology Comment ADEQUATE Red Blood Cell Morphology ANISO 1+ Immature Granulocyte % (Auto) 0.3 0-1 % Neutrophils (%) (Auto) 44.5 40.0-77.0 % Lymphocytes (%) (Auto) 41.7 21.0-51.0 % Monocytes (%) (Auto) 12.6 3.0-13.0 % Eosinophils (%) (Auto) 0.0 0.0-8.0 % Basophils (%) (Auto) 0.9 0.0-5.0 % Neutrophils # (Auto) 1.6 L 1.8-7.7 K/uL Lymphocytes # (Auto) 1.5 1.0-4.8 K/uL Monocytes # (Auto) 0.4 0.1-1.0 K/uL Eosinophils # (Auto) 0.00 0.00-0.70 K/uL Basophils # (Auto) 0.03 0.00-0.20 K/uL Absolute Immature Granulocyte (auto 0.01 0-1 K/uL Chemistry Labs: Test 11/28/24 05:15 11/28/24 04:58 11/27/24 16:01 Range/Units Whole Blood Glucose 71 70-110 MG/DL Sodium Level 139 136-145 mmol/L Potassium Level 4.0 3.5-5.1 mmol/L Chloride Level 106 101-111 mmol/L Carbon Dioxide Level 26 21-32 mmol/L Blood Urea Nitrogen 22 H 7-18 mg/dL Creatinine 0.6 0.5-1.0 mg/dL Glomerular Filtration Rate Calc 105 >90 mL/min Random Glucose 76 70-105 mg/dL Total Calcium 8.1 L 8.5-10.1 mg/dL Phosphorus Level 4.0 2.5-4.9 mg/dL Magnesium Level 2.10 1.80-2.40 mg/dL Procalcitonin < 0.05 L 0.05-0.5 ng/mL Bedside Glucose Comment Notified Nurse DIAGNOSTICS / RADIOLOGY RESULTS: [ ] PLAN NEURO: Minimize central acting medications as possible. Maintain fall precautions, adequate lighting during the day PULMONARY: Supplemental 02 as needed. Maintain aspiration precautions at all times CARDIOVASCULAR: Follow hemodynamics. Vital signs per facility protocol GI & NUTRITION: Continue with nutritional support. Continue stool softeners and laxatives as needed. KIDNEYS & ELECTROLYTES: Strict monitoring of intake, output and overall fluid balance. Avoid nephrotoxic medications to the extent possible. Medications to be dosed according to renal function. Monitor electrolytes and replace as needed ENDOCRINE: Maintain blood glucose between 100-180 at all times. Hypoglycemia protocol in place INFECTIOUS DISEASE: Trend temperature, WBC and procalcitonin level Follow cultures, deescalate antibiotics as soon as possible. Panculture if new onset fever ONCOLOGY/HEMATOLOGY/COAGULATION: Monitor for s/s of bleeding Monitor hemoglobin, coagulation studies as needed SKIN: Pressure ulcer prevention per facility protocol Specialty mattress ORTHO/REHAB: Continue PT/OT Prophylaxis: Continue GI and DVT prophylaxis Code Status: Full Resuscitation Disposition: Home once medically stable for discharge Other: Total patient care time exceeds 35 minutes excluding all procedures. ATTESTATION BY PHYSICIAN The patient has been seen and evaluated, the case has been discussed with the STORE OPERATIONS MANAGER, I agree with the clinical findings and plan of care. Ernesto Anna MD, ECTOR N STORE OPERATIONS MANAGER Nov 28, 2024 10:56
--- NOTE | 2024-11-28 12:41 | HMCIMG ---
IVP W/WO TOMOGRAMS REASON: 2MM RIGHT RENAL PELVIC STONE. COMPARISON: None TECHNIQUE: Frontal projection of the abdomen was obtained as a finish mender image for the IVP with tomography study. CT was performed with 100 cc of Omnipaque. FINDINGS: No gas pattern is seen. Fecal material is seen in the colon. Extensive phleboliths are seen. Prominent bilateral equal opacification of both kidneys are seen after intravenous contrast menstruation. No hydronephrosis or obstruction is seen. Previously described 2 mm right renal pelvic stone is difficult to see with radiographs. Bladder is moderately distended without postvoid residual. IMPRESSION: No obstruction is seen.
[2024-11-28] MEDS: hydroMORPHone 1 MG INJ IVP PRN (14:25)
--- NOTE | 2024-11-28 16:04 | NUR ---
DCP: HOME Sw met with pt who states he son lives with her and is her provider 6-9 and 4 to 730pm. He cristiane pt with bathing set up, dressing, home management and meal prep. Pt states sister Kathe Hodge [phone] is her Er contact and support. Pt uses a walker shower chair and Nebulizer. No HH or HD services. PCP is Diogenes Kong and uses [facility] for rx. DC is home with family Addendum: 11/28/24 at 1611 by ROBERTO JARAMILLO Amended: Links added.
[2024-11-28] MEDS: HYDROcodone/acetaMINOPHEN 7.5/325 MG TAB PO PRN (16:46)
--- NOTE | 2024-11-28 23:00 | NUR ---
TRANSFER OF CARE REPORT GIVEN TO YAYA HOLLAND PATIENT ACCESS ASSOCIATE TO ASSUME CARE OF PATIENT.
[2024-11-28] MEDS: hydroMORPHone 0.5 MG SYG (0.5MG/0.5ML) IVP PRN (23:19)
[2024-11-29] VITALS: BP 113/66; PULSE 62; RESP 24; TEMP 97.5
[2024-11-29 04:00] VITALS: BP 97/55; PULSE 73; RESP 24; TEMP 97.7
[2024-11-29 05:00] VITALS: BP 111/82
[2024-11-29 05:02] LABS: HEMATOCRIT 30.3 % (36-48); MEAN CORPUSCULAR HEMOGLOBIN 31.6 pg (27.0-33.0); MEAN CORPUSCULAR HGB CONC 33.3 g/dL (32.0-36.0); MEAN CORPUSCULAR VOLUME 94.7 fL (79-99); RED BLOOD CELL COUNT(AUTO) 3.2 MIL/uL (4.00-5.50); RED CELL DISTRIBUTION WIDTH 14.3 % (11.0-15.5); WHITE BLOOD COUNT (AUTO) 3.2 K/uL (4.8-10.8)
[2024-11-29 05:12] LABS: CREATININE 0.6 mg/dL (0.5-1.0); POTASSIUM 4.1 mmol/L (3.5-5.1)
[2024-11-29 08:00] VITALS: O2SAT 97
[2024-11-29 08:04] VITALS: BP 121/74; PULSE 73; RESP 18; TEMP 97.6
[2024-11-29] MEDS ORDERED: CEFD300C3 PO (08:43)
--- NOTE | 2024-11-29 08:48 | DS ---
[facility] DISCHARGE SUMMARY Date Patient Seen: Nov 29, 2024 Time of Visit: 08:44 Supervising Physician: [Dr Gale Primary Care Physician: Dr Kong Outpatient Specialists: [ ] Inpatient Consults: [[facility] PROBLEM LIST: Non obstructive Right Nephrolithiasis Acute cystitis ruled out Constipation resolved GERD Fibromyalgia Drug-seeking behavior Anemia Ejection fraction 60-65% per echocardiogram 02/18/2024 Hypoglycemia, POA (blood glucose 68 on arrival) History of severe anxiety and depression on multiple psych medications. Chronic problem list: Hypertension, history of polysubstance abuse, and alcohol abuse, anxiety, arthritis, hypercholesteremia, [place] HOSPITAL COURSE: HPI (per admitting provider) Mrs. Jackeline Farr is a 59 year old with a past medical history of kidney stones, stable angina, with the EF of 60-65%, good, fibromyalgia, drug-seeking behavior, anxiety, depression, hypertension, hyper lipidemia, [place] presents to emergency room with a chief complaint of right back pain which radiates to right flank area and lower abdomen. Patient was previously evaluated at this facility for similar symptoms. Patient was also recently evaluated by her primary care doctor and was started on Macrobid for acute cystitis. Patient admits she takes hydrocodone for chronic back pain. Patient reports she has been dealing with this pain for about a week since last Sunday however has progressively worsened therefore she came in for further evaluation. Patient reports alternating fevers and chills. Patient denies chest discomfort, chest pain, shortness for breath, nausea, vomiting, diarrhea or constipation. Admission vital signs are temperature 98.4 C, heart rate 78 beats per minute, respiratory rate 18 breaths per minute, blood pressure 128/70, O2 sat 98% on room air. Admission labs are unremarkable. Urine is positive for leukocyte esterase and moderate amounts of blood. Patient had a CT of the abdomen and pelvis completed which shows moderate fecal material in the colon, diverticulosis without acute diverticulitis, and a tiny2 mm right renal pelvic stone without hydronephrosis. As per ED MD, patient was to be discharged however she refused to leave and was adamant requesting to be admitted. Patient will be admitted under observation for acute cystitis, constipation. 11/28 - seen and evaluated at the bedside. Patient is sitting up in bed continues to complain of right flank pain however does admit it is being well managed by nursing staff. No acute changes reported overnight. Patient was evaluated by Dr. Bray and recommends functional study with an IVP with tomograms. He was results demonstrate obstruction we will consider nephrostomy tube placement or double-J stent. We will follow results. Vital signs are stable. Labs are within normal limits. We will continue current treatment plan for now. We will await further recommendations by Urology. Today patient is seen lying in bed resting quietly with no signs of acute distress. Patient reports pain has resolved. No acute changes reported overnight. Patient underwent IVP with and without tomograms and findings showed no obstruction seen. Patient was found to have extensive phleboliths seen. Patient has been advised to follow up with PCP in the next 2-3 days. Patient has been advised to follow up with Urology within 1 week. Vital signs are stable. Labs are within normal limits. Medication reconciliation has been completed. New prescriptions have been sent to patient's pharmacy. Education regarding current diagnosis been provided to the patient. All questions have been answered. Patient to be discharged home. Total time spent on discharge greater than 30 minutes The patient was treated for the following problems: ACTIVE PROBLEM LIST FOR THE HOSPITALIZATION: Non obstructive Right Nephrolithiasis Acute cystitis ruled out Constipation resolved GERD Fibromyalgia Drug-seeking behavior Anemia Ejection fraction 60-65% per echocardiogram 02/18/2024 Hypoglycemia, POA (blood glucose 68 on arrival) History of severe anxiety and depression on multiple psych medications. Chronic problem list: Hypertension, history of polysubstance abuse, and alcohol abuse, anxiety, arthritis, hypercholesteremia, [place] CHRONIC PROBLEMS: continue previous management per PCP unless otherwise indicated ACCOUNT RECEIVABLE ASSOCIATE FINDINGS/RECOMMENDATIONS: [ ] Outpatient follow up with Urology in 1 week PROCEDURES: as mentioned above DISCHARGE MEDICATIONS: See DC med rec Pt hemodynamically stable and afebrile at time of discharge. PCP notified of patients admission, hospital course and discharge. New Medications: Cefdinir (Cefdinir) 300 Mg Capsule 1 CAP PO BID for 10 Days, #20 CAP 0 Refills Continued Medications: Alprazolam (Alprazolam) 2 Mg Tablet 2 MG PO Q8H Cyclobenzaprine HCl (Cyclobenzaprine HCl) 10 Mg Tablet 10 MG PO HS Docusate Sodium (Colace) 100 Mg Capsule 100 MG PO BID, #30 CAP Famotidine (Pepcid) 20 Mg Tablet 20 MG PO BID, #30 TAB 0 Refills Fluoxetine HCl (Fluoxetine HCl) 20 Mg Capsule 20 MG PO DAILY Polyethylene Glycol 3350 (Miralax) 17 Gm Powd.pack 17 GM PO DAILY, #21 EA Sucralfate (Sucralfate) 1 Gm Tablet 1 GM PO QID, TAB Tamsulosin HCl (Flomax) 0.4 Mg Cap.er.24h 0.4 MG PO DAILY for 10 Days, #10 CAPSULE. PHYSICAL EXAM: GENERAL: alert, weak, awake oriented x 3 HEENT: EOMI, Sclera non icteric, moist mucosa NECK: Supple, no JVD, trachea midline LUNGS: Clear breath sounds bilaterally. No wheezes HEART: Regular rate and rhythm. Normal S1 and S2, without murmurs ABD: Abdomen soft, nontender. Bowel sounds present EXT: No clubbing cyanosis or edema NEURO: Alert and oriented to person, follows commands FOLLOW-UP: Follow-up with PCP in 2-3 days Follow up with Urology in 1 week RECOMMENDATIONS: See Discharge Instructions This case was seen and discussed with my supervising physician. More than 30 minutes spent on discharge process, including evaluation of the patient, discussion with nursing staff, medication reconciliation and follow-up appointments ATTESTATION BY PHYSICIAN I reviewed the documentation, medical decision making, and treatment plan as noted by the mid-level provider above. I agree with the findings and plan of care. Holger Gale MD, ECTOR N NP Nov 29, 2024 08:48
== END 2024-11-29 11:40 | disposition home or self-care (01) ==
LOC: EDH 04:04 → EDHIP 04:05 → 3AH 12:59
PROVIDERS: ADMIT Internal Medicine Critical Care Medicine; ATTEND Internal Medicine Critical Care Medicine
DX: N20.2 Calculus of kidney with calculus of ureter (principal); K21.9 Gastro-esophageal reflux disease without esophagitis; M79.7 Fibromyalgia; D64.9 Anemia, unspecified; E16.2 Hypoglycemia, unspecified; F32.A Depression, unspecified; F41.9 Anxiety disorder, unspecified; E78.5 Hyperlipidemia, unspecified; G89.29 Other chronic pain; I87.8 Other specified disorders of veins; K57.30 Diverticulosis of large intestine without perforation or abscess without bleeding; M10.9 Gout, unspecified; I25.2 Old myocardial infarction; N20.0 Calculus of kidney; I10 Essential (primary) hypertension; Z76.5 Malingerer [conscious simulation]; Z79.899 Other long term (current) drug therapy; Z87.442 Personal history of urinary calculi
CPT/HCPCS: 96376 ×4; 96361 ×2; 96365; 96366 ×3; 96375; 99285; 80048 ×3; 80305; 85025; 82948 ×7; 81001; 36415 ×3; 74176; 83735; 84100; 85027 ×2; 74400; 84145; G0378 ×49; J2270 ×7; J7030; J0696 ×4; J2405 ×3; J1885 ×4; J1171 ×6; Q9967

== ENCOUNTER 2025-07-29 03:12 | Emergency (ER) | payer MEDICAID ==
[~2025-07-29] VITALS: Ht 165.1 cm; Wt 63.5 kg
[2025-07-29 03:53] LABS: APPEARANCE,URINE CLEAR (CLEAR); GLUCOSE, URINE (UA) NEGATIVE (NEGATIVE); LEUKOCYTE ESTERASE ,URINE NEGATIVE Leu/uL (NEGATIVE); NITRATE,URINE NEGATIVE (NEGATIVE); OCCULT BLOOD,URINE SMALL (NEGATIVE)
[2025-07-29 03:54] LABS: IMMATURE GRANULOCYTE ABSOLUTE 0.01 K/uL (0-1); NUCLEATED RED BLOOD CELLS 0.0 % (0.0-0.19); PLATELET COUNT (AUTO) 300 K/uL (130-400); RED BLOOD CELL COUNT(AUTO) 3.51 MIL/uL (4.00-5.50); RED CELL DISTRIBUTION WIDTH 11.9 % (11.0-15.5); WHITE BLOOD COUNT (AUTO) 2.9 K/uL (4.8-10.8)
[2025-07-29 04:02] LABS: ADD UA MICROSCOPIC YES
[2025-07-29 04:03] LABS: CREATININE 0.6 mg/dL (0.5-1.0); GLOMERULAR FILTR. RATE CALC 104.0 mL/min (>90); GLUCOSE,RANDOM 108.0 mg/dL (70-105); SODIUM SERUM 137.0 mmol/L (136-145); UREA NITROGEN, BLOOD 17.0 mg/dL (7-18)
[2025-07-29 04:06] LABS: SQUAMOUS EPITHELIAL CELL,UR RARE /HPF (0-2)
--- NOTE | 2025-07-29 04:07 | ERN ---
ED Note History of Present Illness Stated Complaint: LOWER BACK PAIN Chief Complaint: Low Back Pain/Injury Time Seen by MD: 03:19 Dictation: This is a 60-year-old female with known history of multiple medical problems presented to the emergency room via EMS for severe low back pain and flank pain. Patient stated that she has had back surgery many years ago in the early and she has suffered chronic back pain. Daily basis she takes ibuprofen for a milder pain and Vicodin for severe pain. Also takes pain medicine at night but today the pain was so severe that she came in for evaluation. No dysuria hematuria or burning micturition. Has a known history of kidney stones and is under the care of a urologist. The pain is mostly localized to the lumbosacral area in the center and bilaterally and no radiation along the gluteals. Patient has no history of bladder or bowel incontinence however has chronic constipation due to opioid use Temperature 98.2 pulse 74 respirations 16 blood pressure 109/52 with a pulse oximetry of 96% on room air Her chronic medical problems include Non obstructive Right Nephrolithiasis, opioid induced Constipation, GERD, Fibromyalgia, opioid dependence Anemia Ejection fraction 60-65% per echocardiogram 02/18/2024 Hypoglycemia, POA (blood glucose 68 on arrival) History of severe anxiety and depression on multiple psych medications. Chronic problem list: Hypertension, history of polysubstance abuse, and alcohol abuse, anxiety, arthritis, hypercholesteremia, [place] Allergies: Coded Allergies: No Known Drug Allergies (Verified Allergy, Unknown, 05/04/19) Home Meds Active Scripts Cefdinir (Cefdinir) 300 Mg Capsule, 1 CAP PO BID for 10 Days, #20 CAP 0 Refills Prov:DIEUDONNE CELIS [employer]M PRESS OPERATOR 11/29/24 Tamsulosin HCl (Flomax) 0.4 Mg Cap.er.24h, 0.4 MG PO DAILY for 10 Days, #10 CAPSULE. Prov:ALEIDA MARCELO MD 11/26/24 Famotidine (Pepcid) 20 Mg Tablet, 20 MG PO BID, #30 TAB 0 Refills Prov:RAFI MONTOYA MD 11/29/21 Docusate Sodium (Colace) 100 Mg Capsule, 100 MG PO BID, #30 CAP Prov:ALOK CROWLEY Jr. FORM PRESS OPERATOR 08/21/21 Polyethylene Glycol 3350 (Miralax) 17 Gm Powd.pack, 17 GM PO DAILY, #21 EA Prov:ALOK CROWLEY FORM PRESS OPERATOR 08/21/21 Reported Medications Alprazolam (Alprazolam) 2 Mg Tablet, 2 MG PO Q8H 05/05/19 Cyclobenzaprine HCl (Cyclobenzaprine HCl) 10 Mg Tablet, 10 MG PO HS 05/05/19 Fluoxetine HCl (Fluoxetine HCl) 20 Mg Capsule, 20 MG PO DAILY 05/05/19 Sucralfate (Sucralfate) 1 Gm Tablet, 1 GM PO QID, TAB 12/10/18 Past Medical History Past Medical History: Fibromyalgia, GERD, Kidney Stone Additional Past Medical Hx: HX OF KIDNEY STONES Surgical History: Other Surgical History Other: BACK SX Family History: CAD, DM Social History: Negative, Lives alone, Other History: Not Applicable RN Note Reviewed/Agreed w/PFSH: Yes Review of System Dictation Constitutional: Negative for fever,chills, and weight loss Eyes: Negative for injury, pain,redness, and discharge ENT: Negative for injury,pain or swelling Cardiovascular: Negative for chest pain, palpitations, and edema Respiratory: Negative for shortness of breath, cough, and wheezing, Abdomen/GI: Negative for abdominal pain, nausea, vomiting, diarrhea, and constipation Back: Negative for injury and positive for low pain : Negative for injury, bleeding and discharge MS/Extremity: Negative for injury and deformity Skin: Negative for rash, and discoloration Neuro: Negative for headache, weakness, numbness, tingling, and seizure Psych: Negative for suicide ideation, homicidal ideation, and hallucinations Initial Vital Sign VS Vital Signs Date Time Temp Pulse Resp B/P (MAP) Pulse Ox O2 Delivery O2 Flow Rate FiO2 07/29/25 03:17 98.2 74 16 109/52 96 Room Air 0 07/29/25 04:30 21 Physical Exam Dictation General: awake, alert, NAD generally anxious Head/Face: Normocephalic, atraumatic Eyes: PERRL, EOMI, vision at baseline ENT: oral cavity clear, TMs clear, no signs of infection Neck: Trachea midline, supple, no nuchal rigidity Cardiovascular: RRR, normal S1/S2, No MRGs, no JVD Respiratory: CTAB, no respiratory distress, No rales or wheezes Abdomen: Soft, non-tender, non-distended, normal bowel sounds, no guarding or rebound. Back-no obvious deformity cellulitis ecchymosis or bony deformities no point tenderness in the lumbosacral area. Skin: Warm, dry, normal turgor, no rash MS/Extremity: Pulses equal, no cyanosis, neurovascular intact, FROM Neuro: COAx4, GCS 15, strength 5/5, CN 2-12 intact, normal cerebellar exam, normal gait, Psych: Normal behavior, mood, and affect normal Extremities-trace edema without any palpable cords, Homans sign is negative Results (Laboratory/Radiology) Laboratory/Radiology Laboratory Tests Test 07/29/25 03:41 07/29/25 03:44 White Blood Count 2.9 K/uL (4.8-10.8) L Red Blood Count 3.51 MIL/uL (4.00-5.50) L Hemoglobin 11.2 g/dL (12.0-16.0) L Hematocrit 34.0 % (36-48) L Mean Corpuscular Volume 96.9 fL (79-99) Mean Corpuscular Hemoglobin 31.9 pg (27.0-33.0) Mean Corpuscular Hemoglobin Concent 32.9 g/dL (32.0-36.0) Red Cell Distribution Width 11.9 % (11.0-15.5) Platelet Count 300 K/uL (130-400) Mean Platelet Volume 8.8 fL (7.5-10.5) Immature Granulocyte % (Auto) 0.3 % (0-1) Neutrophils (%) (Auto) 41.8 % (40.0-77.0) Lymphocytes (%) (Auto) 40.0 % (21.0-51.0) Monocytes (%) (Auto) 17.6 % (3.0-13.0) H Eosinophils (%) (Auto) 0.0 % (0.0-8.0) Basophils (%) (Auto) 0.3 % (0.0-5.0) Neutrophils # (Auto) 1.2 K/uL (1.8-7.7) L Lymphocytes # (Auto) 1.2 K/uL (1.0-4.8) Monocytes # (Auto) 0.5 K/uL (0.1-1.0) Eosinophils # (Auto) 0.00 K/uL (0.00-0.70) Basophils # (Auto) 0.01 K/uL (0.00-0.20) Absolute Immature Granulocyte (auto 0.01 K/uL (0-1) Segmented Neutrophils % 35 % (40-70) L Band Neutrophils % 1 % (0-2) Lymphocytes % (Manual) 35 % (22-44) Monocytes % (Manual) 18 % (2-9) H Eosinophils % (Manual) 4 % (1-6) Nucleated Red Blood Cells 0.0 % (0.0-0.19) Differential Comment MANUAL DIFFERENTIAL Reactive Lymphocytes 7 % (0-0) H White Cell Morphology Comment REACTIVE LYMPHS 1+ Platelet Morphology Comment ADEQUATE Red Blood Cell Morphology See comments Sodium Level 137 mmol/L (136-145) Potassium Level 3.5 mmol/L (3.5-5.1) Chloride Level 103 mmol/L (101-111) Carbon Dioxide Level 25 mmol/L (21-32) Blood Urea Nitrogen 17 mg/dL (7-18) Creatinine 0.6 mg/dL (0.5-1.0) Glomerular Filtration Rate Calc 104 mL/min (>90) Random Glucose 108 mg/dL (70-105) H Total Calcium 8.5 mg/dL (8.5-10.1) Urine Color LIGHT-YELLOW (YELLOW) Urine Appearance CLEAR (CLEAR) Urine pH 6.0 (5.0-8.0) Urine Specific [place] 1.012 (1.001-1.031) Urine Protein NEGATIVE mg/dL (NEGATIVE) Urine Glucose (UA) NEGATIVE mg/dL (NEGATIVE) Urine Ketones NEGATIVE mg/dL (NEGATIVE) Urine Occult Blood SMALL (NEGATIVE) H Urine Nitrate NEGATIVE (NEGATIVE) Urine Bilirubin NEGATIVE mg/dL (NEGATIVE) Urine Urobilinogen 0.2 mg/dL (0.2-1.0) Urine Leukocyte Esterase NEGATIVE [place]/uL Urine RBC 2-5 /HPF (0-1) H Urine WBC 0-1 /HPF (0-1) Urine Squamous Epithelial Cells RARE /HPF (0-2) Urine Bacteria None /HPF (None Seen) Labs Reviewed?: Yes CT Scan Comment: REASON: renal colic ORDERING PHYSICIAN: ANTONIO PANIAGUA MD PROCEDURE: ABD PELVWO - CT ABD/PEL WO CON RENAL/APPY EXAM: CT Abdomen and Pelvis Without IV contrast CLINICAL HISTORY: Renal colic. TECHNIQUE: Axial computed tomography images of the abdomen and pelvis without intravenous contrast. Multiplanar reconstructions available. CT scan is done according to ALARA (As Low As Reasonably Achievable). CONTRAST: No IV contrast. COMPARISON: None provided. FINDINGS: LUNG BASES: Linear atelectasis in the left lingula. No pleural effusions are seen. LIVER: Unremarkable. GALLBLADDER AND BILE DUCTS: The gallbladder is contracted. No radioopaque gallstones are seen. No biliary ductal dilatation is evident. PANCREAS: Unremarkable. SPLEEN: Unremarkable. ADRENAL GLANDS: Unremarkable. KIDNEYS, URETERS, AND BLADDER: A 0.3 cm calculus at the mid pole and a 0.37 cm calculus at the upper pole of the right kidney. The left kidney appears within normal limits. There is no hydronephrosis or hydroureter. No urinary calculi are seen in the left kidney, ureters, or bladder. STOMACH AND BOWEL: Minimal hiatal hernia. Unremarkable appearance of the stomach and bowel. No evidence of bowel obstruction. No evidence suggesting enteritis or colitis. APPENDIX: No evidence of acute appendicitis on CT examination. PERITONEUM: No free fluid. No free air. LYMPH NODES: No lymphadenopathy is evident. REPRODUCTIVE: The uterus is not visualized. The rest, unremarkable as visualized. Multiple small phleboliths are noted in the pelvis. VASCULATURE: No evidence of abdominal aortic aneurysm. BONES: Degenerative changes in the visualized vertebrae. No aggressive appearing osseous lesion. No acute osseous pathology evident. Subtle central collapse of the T11 vertebral body. IMPRESSION: No acute intra-abdominal or pelvic abnormality. No obstructing renal or ureteral calculi or hydronephrosis. Non-obstructing 0.3 cm calculus at the mid pole and 0.37 cm calculus at the upper pole of the right kidney. Multiple small phleboliths in the pelvis.' Minimal hiatal hernia. /[place] DICTATED BY: SALOME FARRAR Jr., MD DATE: 07/29/25718 ELECTRONICALLY SIGNED BY: SALOME FARRAR Jr., MD DATE: 07/29/25718 ED Course ED Course Orders Procedure Category Date Status Time Vital Signs Per CPOE 07/29/25 Transmitted Routine 03: Strain All Urine CPOE 07/29/25 Transmitted Output From 03:22 Cbc With Differential LAB 07/29/25 Complete 03:22 Saline Lock Iv CPOE 07/29/25 Transmitted 03:22 Basic Metabolic Panel LAB 07/29/25 Complete 03:22 Urinalysis Profile LAB 07/29/25 Complete 03:22 Manual Differential LAB 07/29/25 Complete 03:41 0.9%Nacl 1000ml (Ns PHA 07/29/25 Complete 1000ml) 04:30 Ketorolac PHA 07/29/25 Complete Tromethamine 15mg/Ml 04:30 Ct Abd/Pel Wo Con CT 07/29/25 Resulted Renal/Appy 04:29 Morphine 4mg Syg PHA 07/29/25 Complete (Morphine 4mg Syg) 05:30 Current Medications Medications (Trade) Dose Ordered Sig/Kishore Route PRN Reason Start Time Stop Time Status Last Admin Dose Admin Ketorolac Tromethamine (toRADol) 15 mg ONCE ONCE IV 07/29/25 04:30 07/29/25 04:32 DC 07/29/25 04:30 Morphine Sulfate (morPHINE 4MG SYG) 4 mg ONCE ONCE IVP 07/29/25 05:30 07/29/25 05:32 DC 07/29/25 05:35 Sodium Chloride 1,000 ml @ 0 mls/hr ONCE ONCE IV 07/29/25 04:30 07/29/25 04:32 DC 07/29/25 04:30 Vital Signs Date Time Temp Pulse Resp B/P (MAP) Pulse Ox O2 Delivery O2 Flow Rate FiO2 07/29/25 06:42 98.2 73 15 107/68 98 Room Air* 0 07/29/25 05:55 75 16 106/68 98 Room Air* 0 07/29/25 04:30 98.2 85 17 108/62 100 Room Air* 0 07/29/25 03:17 98.2 74 16 109/52 96 Room Air 0 Medical Decision Making MDM Differential diagnosis: Lumbago, degenerative disc disease, paraspinal muscle spasm, central canal stenosis, dish, optimal stenosis, herniated intervertebral discs, spondylolisthesis This is a 60-year-old female with known history of multiple medical problems presented to the emergency room via EMS for severe low back pain and flank pain. Patient stated that she has had back surgery many years ago in the early s and she has suffered chronic back pain. Daily basis she takes ibuprofen for a milder pain and Vicodin for severe pain. Also takes pain medicine at night but today the pain was so severe that she came in for evaluation. No dysuria hematuria or burning micturition. Has a known history of kidney stones and is under the care of a urologist. The pain is mostly localized to the lumbosacral area in the center and bilaterally and no radiation along the gluteals. Patient has no history of bladder or bowel incontinence however has chronic constipation due to opioid use Temperature 98.2 pulse 74 respirations 16 blood pressure 109/52 with a pulse oximetry of 96% on room air Her chronic medical problems include Non obstructive Right Nephrolithiasis, opioid induced Constipation, GERD, Fibromyalgia, opioid dependence Anemia Ejection fraction 60-65% per echocardiogram 02/18/2024 Hypoglycemia, POA (blood glucose 68 on arrival) History of severe anxiety and depression on multiple psych medications. Chronic problem list: Hypertension, history of polysubstance abuse, and alcohol abuse, anxiety, arthritis, hypercholesteremia, [place] 4:00 a.m. labs reviewed CBC showed a white count of 2.9 hemoglobin 11.2. 4:30 a.m. BNP 7 is with a normal limits and urinalysis unremarkable. 5:[address] scan of the abdomen and pelvis is still pending 5:50 a.m. radiology report reviewed patient has 2 small stones in the right kidney which are old. No evidence of any hydroureter or hydronephrosis noted. Patient responded to pain medication she will be discharged to home to follow up with her stage settings painter Counseled on opioid use abuse and overuse and all the complications associated. Rationale: Tests considered and ordered secondary to shared decision making include: CBC BNP 7 and urinalysis, CT scan of the abdomen and pelvis Previous outside records reviewed: Old ER visits. Risk of complication and/or morbidity or mortality of patient management: None Medications-Per medication reconciliation Need for hospitalization: Patient does not meet criteria for hospitalization. Need for emergency major/minor surgery: No There are no social concerns with this patient. Prescription drug management Prescriptions will include symptomatic care Patient's prior external medical records from other ER visits were reviewed by me as indicated. Prior testing and results from previous visits were reviewed. Prior tests were taken into account with medical decision making and resource utilization, independent historian/historians were used to obtain complete medical history. I independently interpreted the test that were performed, results were reviewed by me and considered findings on radiology if ordered. Medical management and examination interpretation discussions were had by me with other qualified healthcare professionals as indicated for the patient's care. Problem List Problem List: (1) Chronic low back pain (2) Opioid dependence (3) History of lumbosacral spine surgery DX & DISP Disposition: Discharge Departure Impression: Primary Impression: Chronic low back pain Additional Impressions: History of lumbosacral spine surgery, Opioid dependence Condition: Stable Additional Instructions: Patient and the caregiver have been informed of all the diagnostic tests and the imaging conducted during the today's visit to the emergency room and has verbalized understanding of the results I have personally reviewed and interpreted all diagnostic exams performed here in the ER today as well as the vital signs documented by the nursing staff. The patient is now being discharged to home and should follow up with the primary care physician or the specialist as directed by the ER staff. Patient we will follow up with Dr. Wyatt, stage settings painter. Patient is also working on iron in out the insurance issues to see the urologist Dr. Ken Brandon Referrals: ANDRES MENDEZ MD (PCP) ANTONIO PANIAGUA MD Jul 29, 2025 04:07
[2025-07-29] MEDS: 0.9%NACL 1000ML 1,000 ML IV ONE (04:30)
[2025-07-29 05:33] LABS: BAND NEUTROPHILS % (MANUAL) 1 % (0-2); EOSINOPHILS % (MANUAL) 4 % (1-6); LYMPHOCYTES % (MANUAL) 35 % (22-44); MONOCYTES % (MANUAL) 18 % (2-9); REACTIVE LYMPHOCYTES 7 % (0-0); SEGMENTED NEUTROPHILS % 35 % (40-70)
[2025-07-29 05:34] LABS: MAN.DIFF COMMENT-IMPRESSION MANUAL DIFFERENTIAL; PLATELET MORPHOLOGY COMMENT ADEQUATE; WBC MORPHOLOGY REACTIVE LYMPHS 1+
--- NOTE | 2025-07-29 06:20 | HMCIMG ---
EXAM: CT Abdomen and Pelvis Without IV contrast CLINICAL HISTORY: Renal colic. TECHNIQUE: Axial computed tomography images of the abdomen and pelvis without intravenous contrast. Multiplanar reconstructions available. CT scan is done according to ALARA (As Low As Reasonably Achievable). CONTRAST: No IV contrast. COMPARISON: None provided. FINDINGS: LUNG BASES: Linear atelectasis in the left lingula. No pleural effusions are seen. LIVER: Unremarkable. GALLBLADDER AND BILE DUCTS: The gallbladder is contracted. No radioopaque gallstones are seen. No biliary ductal dilatation is evident. PANCREAS: Unremarkable. SPLEEN: Unremarkable. ADRENAL GLANDS: Unremarkable. KIDNEYS, URETERS, AND BLADDER: A 0.3 cm calculus at the mid pole and a 0.37 cm calculus at the upper pole of the right kidney. The left kidney appears within normal limits. There is no hydronephrosis or hydroureter. No urinary calculi are seen in the left kidney, ureters, or bladder. STOMACH AND BOWEL: Minimal hiatal hernia. Unremarkable appearance of the stomach and bowel. No evidence of bowel obstruction. No evidence suggesting enteritis or colitis. APPENDIX: No evidence of acute appendicitis on CT examination. PERITONEUM: No free fluid. No free air. LYMPH NODES: No lymphadenopathy is evident. REPRODUCTIVE: The uterus is not visualized. The rest, unremarkable as visualized. Multiple small phleboliths are noted in the pelvis. VASCULATURE: No evidence of abdominal aortic aneurysm. BONES: Degenerative changes in the visualized vertebrae. No aggressive appearing osseous lesion. No acute osseous pathology evident. Subtle central collapse of the T11 vertebral body. IMPRESSION: No acute intra-abdominal or pelvic abnormality. No obstructing renal or ureteral calculi or hydronephrosis. Non-obstructing 0.3 cm calculus at the mid pole and 0.37 cm calculus at the upper pole of the right kidney. Multiple small phleboliths in the pelvis.' Minimal hiatal hernia. /[place]
[2025-07-29 07:18] VITALS: BP 89/52; PULSE 69; RESP 12; TEMP 98.4; O2SAT 96
== END 2025-07-29 08:24 | disposition home or self-care (01) ==
LOC: EDH 03:12
DX: G89.29 Other chronic pain (principal); M54.50 Low back pain, unspecified; F11.20 Opioid dependence, uncomplicated; E78.00 Pure hypercholesterolemia, unspecified; I10 Essential (primary) hypertension; F41.9 Anxiety disorder, unspecified; I25.2 Old myocardial infarction; M79.7 Fibromyalgia; M19.90 Unspecified osteoarthritis, unspecified site; K21.9 Gastro-esophageal reflux disease without esophagitis; Z87.442 Personal history of urinary calculi; Z79.899 Other long term (current) drug therapy
CPT/HCPCS: 99285; 74176; 96374; 96361; 96375; 80048; 85025; 81001; 36415; J1885; J7030; J2270